=== PATIENT | female | born 1995 | race Caucasian/White ===

== ENCOUNTER 2021-01-07 13:35 | Emergency (ER) | payer OTHER ==
[~2021-01-07 13:35] MED LIST: BENTYL 20MG TAB20 MG PO; KEFLEX CAP 500500 MG PO; REGLAN10 MG PO
[2021-01-07] MEDS ORDERED: VOLTAREN EC 5050 MG PO (14:45)
[2021-01-07] MEDS ORDERED: NORFLEX 100 MG100 MG PO (14:45)
== END 2021-01-07 15:10 | disposition home or self-care (01) ==
LOC: ER1 13:35
DX: S39.012A Strain of muscle, fascia and tendon of lower back, initial encounter (principal); S29.012A Strain of muscle and tendon of back wall of thorax, initial encounter; I10 Essential (primary) hypertension; F17.210 Nicotine dependence, cigarettes, uncomplicated; V49.40XA Driver injured in collision with unspecified motor vehicles in traffic accident, initial encounter; Y92.410 Unspecified street and highway as the place of occurrence of the external cause
CPT/HCPCS: 84703; 96372; 99283; J1885; J2360